=== PATIENT | male | born 1990 | race Caucasian/White ===

== ENCOUNTER 2021-10-15 19:36 | Emergency (ER) | payer SELFPAY ==
[~2021-10-15] VITALS: Ht 172.7 cm; Wt 91.0 kg
[2021-10-15] MEDS ORDERED: DIPHENHYDRAMINE 50MG/ML VIAL IM ONE (20:00)
[2021-10-15] MEDS ORDERED: HALOPERIDOL LACTATE 5MG/ML VIAL IM ONE (20:00)
[2021-10-15 21:17] LABS: BASOPHILS % 0.4 % (0.0-2.0); EOSINOPHILS % 0.8 % (0.0-5.0); HEMATOCRIT. 44.8 % (42.0-52.0); LYMPHOCYTES % 22.9 % (20.0-50.0); MEAN CORPUSCULAR HEMOGLOBIN 30.2 pg (28.0-32.0); MEAN CORPUSCULAR VOLUME 90.3 fL (80.0-94.0); MEAN PLATELET VOLUME 7.7 fl (7.4-10.4); NEUTROPHILS % 66.9 % (40.0-76.0); PLATELET 213 x1000/uL (130-400); RED BLOOD CELL COUNT 4.96 mill/uL (4.7-6.1); RED CELL DISTRIBUTION WIDTH 13.9 % (11.6-14.6)
[2021-10-15 21:18] LABS: CLARITY URINE CLEAR (CLEAR); COLOR URINE YELLOW (YELLOW); KETONES URINE TRACE (NEGATIVE); LEUKOCYTE ESTERASE URINE NEGATIVE (NEGATIVE); NITRITE URINE NEGATIVE (NEGATIVE); OCCULT BLOOD URINE NEGATIVE (NEGATIVE); PROTEIN URINE NEGATIVE (NEGATIVE); SPECIFIC GRAVITY URINE 1.031 (1.005-1.030)
[2021-10-15 21:29] LABS: *AMPHETAMINES SCREEN URINE PRESUMTIVE POSITIVE (NEGATIVE); *BARBITURATES SCREEN URINE NEGATIVE (NEGATIVE); *BENZODIAZEPINES SCREEN URINE NEGATIVE (NEGATIVE); *COCAINE SCREEN URINE NEGATIVE (NEGATIVE); CANNABINOID URINE SCREEN PRESUMTIVE POSITIVE (NEGATIVE); METHADONE URINE SCREEN NEGATIVE (NEGATIVE); OPIATES URINE SCREEN NEGATIVE (NEGATIVE); PHENCYCLIDINE URINE SCREEN NEGATIVE (NEGATIVE)
[2021-10-15 21:30] LABS: CHLORIDE 108 mEq/L (98-107)
[2021-10-15 21:35] LABS: ETHANOL BLOOD < 10 mg/dL
[2021-10-15] MEDS ORDERED: DIPHENHYDRAMINE 50MG/ML VIAL IM NR (22:30)
[2021-10-15] MEDS ORDERED: HALOPERIDOL LACTATE 5MG/ML VIAL IM NR (22:30)
[2021-10-16] MEDS: OLANZAPINE 5MG TABLET ODT PO SCH ×2 (10:30→17:00)
[2021-10-17] MEDS: OLANZAPINE 5MG TABLET ODT PO SCH ×2 (09:38→17:37)
[2021-10-18 10:30] VITALS: BP 114/79
== END 2021-10-18 10:50 | disposition home or self-care (01) ==
LOC: ER 19:36
DX: F23 Brief psychotic disorder (principal); T43.621A Poisoning by amphetamines, accidental (unintentional), initial encounter; Y92.9 Unspecified place or not applicable; F31.9 Bipolar disorder, unspecified; F17.210 Nicotine dependence, cigarettes, uncomplicated; Z20.822 Contact with and (suspected) exposure to COVID-19
CPT/HCPCS: 36415; 80053; 80305; 80307; 80320; 80329; 81003; 85025; 87426; 96372; 99285; C9803; J1200; J1630; U0003; U0005; G0480

== ENCOUNTER 2022-02-24 13:36 | Emergency (ER) | payer OTHER ==
[~2022-02-24] VITALS: Ht 175.3 cm; Wt 74.0 kg
[2022-02-24 13:44] VITALS: BP 134/88
== END 2022-02-24 14:44 ==
LOC: ER 13:36
DX: Z02.79 Encounter for issue of other medical certificate (principal)
CPT/HCPCS: 99283